=== PATIENT | female | born 1950 | race Caucasian/White ===

== ENCOUNTER 2020-05-01 09:10 | Emergency (ER) | payer OTHER ==
[~2020-05-01] VITALS: Ht 165.1 cm; Wt 79.4 kg
[2020-05-01 09:46] LABS: BASOPHILS PERCENT AUTO 1 % (0-2); EOSINOPHILS ABSOLUTE AUTO 0.32 K/mm3 (0.00-0.68); EOSINOPHILS PERCENT AUTO 2 % (0-6); Hemoglobin 14.3 g/dL (11.5-16.0); IMMATURE GRAN ABSOLUTE AUTO 0.15 K/mm3 (0.00-0.10); IMMATURE GRAN PERCENT AUTO 1 % (0-1); LYMPHOCYTES ABSOLUTE AUTO 1.63 K/mm3 (0.84-5.20); LYMPHOCYTES PERCENT AUTO 10 % (21-46); MONOCYTES ABSOLUTE AUTO 0.67 K/mm3 (0.16-1.47); MONOCYTES PERCENT AUTO 4 % (4-13); Mean Corpuscular HGB 30.5 pg (26.0-34.0); Mean Corpuscular HGB Conc 32.5 g/dL (31.5-36.5); Mean Corpuscular Volume 94 fL (80-100); Mean Platelet Volume 8.9 fL (9.1-12.4); NEUTROPHILS PERCENT AUTO 83 % (41-73); Platelet Count 303 K/mm3 (150-400); RDW Coefficient Variation 14.6 % (11.7-14.2); RDW Standard Deviation 50.4 fL (35.1-46.3); Red Blood Cell Count 4.69 M/mm3 (3.80-5.20); White Blood Cell Count 16.67 K/mm3 (4.00-11.30)
[2020-05-01 10:05] LABS: Alanine Aminotransfer (ALT/SGP 11 U/L (12-78); Albumin, Blood 2.3 g/dL (3.4-5.0); Albumin/Globulin Ratio 0.4 (0.8-1.8); Alk Phos 104 U/L (50-136); Anion Gap 7 mmol/L (6-16); Aspartate Aminotrans (AST/SGOT 49 U/L (12-37); Bilirubin, Total 0.9 mg/dL (0.1-1.0); Blood Urea Nitrogen 11 mg/dL (8-24); Bun/Creatinine Ratio 15.9 (12.0-20.0); CO2, Blood 26 mmol/L (21-32); Chloride, Blood 105 mmol/L (98-108); Creatinine, Blood 0.69 mg/dL (0.40-1.00); Globulin, Blood 6.1 g/dL (2.2-4.0); Glomerular Filtration Rate >60 (60-); Glucose, Blood 117 mg/dL (70-99); Potassium, Blood 3.9 mmol/L (3.5-5.5); Sodium, Blood 138 mmol/L (136-145); Total Protein, Blood 8.4 g/dL (6.4-8.2)
[2020-05-01] MEDS ORDERED: Norco 5-325 Ta1 EACH PO (14:43)
[2020-05-01] MEDS ORDERED: Zofran4 MG PO (14:43)
== END 2020-05-01 15:01 | disposition home or self-care (01) ==
LOC: ER 09:10
PROVIDERS: Emergency Medicine
DX: R10.9 Unspecified abdominal pain (principal); R19.00 Intra-abdominal and pelvic swelling, mass and lump, unspecified site
CPT/HCPCS: 36415; 74177; 80053; 83605; 83690; 85025; 96365-59; 96366; 96368; 96375; 96376; 99284-25; J0744; J1170; J1885; J2405; J2550; J7030; Q9967

== ENCOUNTER 2020-05-19 21:38 | Emergency (ER) | payer MEDICARE ==
[~2020-05-19] VITALS: Ht 165.1 cm; Wt 77.1 kg
[~2020-05-19 21:38] MED LIST: Norco 5-325 Ta1 EACH PO; Zofran4 MG PO
[2020-05-19 22:10] LABS: BASOPHILS ABSOLUTE AUTO 0.06 K/mm3 (0.00-0.23); BASOPHILS PERCENT AUTO 0 % (0-2); EOSINOPHILS ABSOLUTE AUTO 0.04 K/mm3 (0.00-0.68); EOSINOPHILS PERCENT AUTO 0 % (0-6); Hematocrit 32.4 % (33.0-51.0); IMMATURE GRAN ABSOLUTE AUTO 0.42 K/mm3 (0.00-0.10); IMMATURE GRAN PERCENT AUTO 3 % (0-1); LYMPHOCYTES ABSOLUTE AUTO 1.76 K/mm3 (0.84-5.20); LYMPHOCYTES PERCENT AUTO 12 % (21-46); MONOCYTES ABSOLUTE AUTO 1.23 K/mm3 (0.16-1.47); MONOCYTES PERCENT AUTO 8 % (4-13); Mean Corpuscular HGB 29.2 pg (26.0-34.0); Mean Corpuscular HGB Conc 30.9 g/dL (31.5-36.5); Mean Corpuscular Volume 95 fL (80-100); Mean Platelet Volume 8.4 fL (9.1-12.4); NEUTROPHILS ABSOLUTE AUTO 11.19 K/mm3 (1.96-9.15); NEUTROPHILS PERCENT AUTO 76 % (41-73); NRBC ABSOLUTE 0.03 K/mm3 (0.00-0.02); NRBC Auto 0.2 /100 WBC (0.0-0.2); Platelet Count 325 K/mm3 (150-400); RDW Coefficient Variation 16.6 % (11.7-14.2); RDW Standard Deviation 56.6 fL (35.1-46.3); Red Blood Cell Count 3.42 M/mm3 (3.80-5.20)
[2020-05-19 22:25] LABS: Alanine Aminotransfer (ALT/SGP 11 U/L (12-78); Albumin, Blood 2.1 g/dL (3.4-5.0); Albumin/Globulin Ratio 0.4 (0.8-1.8); Alk Phos 91 U/L (50-136); Anion Gap 10 mmol/L (6-16); Aspartate Aminotrans (AST/SGOT 36 U/L (12-37); Bilirubin, Total 0.4 mg/dL (0.1-1.0); Blood Urea Nitrogen 6 mg/dL (8-24); Bun/Creatinine Ratio 12.8 (12.0-20.0); CO2, Blood 28 mmol/L (21-32); Calcium, Blood 8.4 mg/dL (8.5-10.1); Chloride, Blood 101 mmol/L (98-108); Creatinine, Blood 0.47 mg/dL (0.40-1.00); Globulin, Blood 5.2 g/dL (2.2-4.0); Glomerular Filtration Rate >60 (60-); Glucose, Blood 86 mg/dL (70-99); Potassium, Blood 3.5 mmol/L (3.5-5.5); Sodium, Blood 139 mmol/L (136-145); Total Protein, Blood 7.3 g/dL (6.4-8.2)
== END 2020-05-20 02:47 | disposition short-term general hospital (02) ==
LOC: ER 21:38
PROVIDERS: Emergency Medicine
DX: C55 Malignant neoplasm of uterus, part unspecified (principal); R11.2 Nausea with vomiting, unspecified; Z88.0 Allergy status to penicillin; Z88.5 Allergy status to narcotic agent; Z90.710 Acquired absence of both cervix and uterus
CPT/HCPCS: 36415; 74177; 80053; 83690; 85025; 93005; 93010; 96361; 96374; 96376; 99285-25; J0694; J2405; J7030; Q9967

== ENCOUNTER 2020-05-30 17:04 | Inpatient (IN) | payer MEDICARE ==
[~2020-05-30] VITALS: Ht 165.1 cm; Wt 83.0 kg
[2020-05-30] MEDS ORDERED: Ativan1 MG PO ×2 (17:34→21:33)
[2020-05-30] MEDS ORDERED: OXYC5 PO (17:34)
[2020-05-30 17:42] LABS: Hematocrit 26.3 % (33.0-51.0); Hemoglobin 8.6 g/dL (11.5-16.0); Mean Corpuscular HGB 29.4 pg (26.0-34.0); Mean Corpuscular HGB Conc 32.7 g/dL (31.5-36.5); Mean Corpuscular Volume 90 fL (80-100); Mean Platelet Volume 10.8 fL (9.1-12.4); Platelet Count 91 K/mm3 (150-400); RDW Coefficient Variation 15.3 % (11.7-14.2); RDW Standard Deviation 50.1 fL (35.1-46.3); Red Blood Cell Count 2.93 M/mm3 (3.80-5.20)
[2020-05-30 18:05] LABS: CPK Creatine Kinase 52 U/L (26-193); Troponin I 0.038 ng/mL (0.000-0.040)
[2020-05-30 18:08] LABS: BAND PERCENT MAN 1 % (0-8); BASOPHILS PERCENT MAN 1 % (0-2); EOSINOPHILS PERCENT MAN 5 % (0-6); LYMPHOCYTES PERCENT MAN 69 % (21-46); MONOCYTES PERCENT MAN 1 % (4-13); SEG NEUTROPHILS PERCENT MAN 23 % (41-73); TOTAL CELLS COUNTED 100
[2020-05-30 18:37] LABS: Influenza A, PCR Negative (NEGATIVE); Influenza B, PCR Negative (NEGATIVE); Resp Syncytial Virus, PCR Negative (NEGATIVE); SARS-Cov-2 (COVID-19) PCR, MMC Negative (NEGATIVE)
[2020-05-30 18:55] LABS: Alanine Aminotransfer (ALT/SGP 22 U/L (12-78); Albumin, Blood 2.3 g/dL (3.4-5.0); Albumin/Globulin Ratio 0.6 (0.8-1.8); Alk Phos 81 U/L (50-136); Anion Gap 11 mmol/L (6-16); Aspartate Aminotrans (AST/SGOT 59 U/L (12-37); Bilirubin, Total 0.7 mg/dL (0.1-1.0); Blood Urea Nitrogen 7 mg/dL (8-24); Bun/Creatinine Ratio 18.9 (12.0-20.0); CO2, Blood 30 mmol/L (21-32); Calcium, Blood 7.9 mg/dL (8.5-10.1); Chloride, Blood 94 mmol/L (98-108); Creatinine, Blood 0.37 mg/dL (0.40-1.00); Globulin, Blood 4.1 g/dL (2.2-4.0); Glomerular Filtration Rate >60 (60-); Glucose, Blood 100 mg/dL (70-99); IMMATURE GRAN PERCENT AUTO 0 % (0-1); LYMPHOCYTES ABSOLUTE AUTO 0.83 K/mm3 (0.84-5.20); LYMPHOCYTES PERCENT AUTO 69 % (21-46); MONOCYTES ABSOLUTE AUTO 0.05 K/mm3 (0.16-1.47); MONOCYTES PERCENT AUTO 4 % (4-13); NEUTROPHILS ABSOLUTE AUTO 0.27 K/mm3 (1.96-9.15); NEUTROPHILS PERCENT AUTO 22 % (41-73); Potassium, Blood 2.2 mmol/L (3.5-5.5); Sodium, Blood 135 mmol/L (136-145); Total Protein, Blood 6.4 g/dL (6.4-8.2)
[2020-05-30 19:25] LABS: Magnesium, Blood 1.8 mg/dL (1.6-2.4)
[2020-05-30 21:12] LABS: Phosphorus, Blood 2.2 mg/dL (2.5-4.9)
[2020-05-30] MEDS ORDERED: ELIQUIS2.5 M1 PO (21:29)
[2020-05-30] MEDS ORDERED: HYDROCODONE-AC1 EA10 PO (21:31)
[2020-05-31 05:25] LABS: BASOPHILS ABSOLUTE AUTO 0.01 K/mm3 (0.00-0.23); BASOPHILS PERCENT AUTO 1 % (0-2); EOSINOPHILS ABSOLUTE AUTO 0.03 K/mm3 (0.00-0.68); EOSINOPHILS PERCENT AUTO 3 % (0-6); Hemoglobin 8.6 g/dL (11.5-16.0); Mean Corpuscular HGB 29.1 pg (26.0-34.0); Mean Corpuscular HGB Conc 33.1 g/dL (31.5-36.5); Mean Corpuscular Volume 88 fL (80-100); Mean Platelet Volume 10.5 fL (9.1-12.4); Platelet Count 84 K/mm3 (150-400); RDW Coefficient Variation 15.1 % (11.7-14.2); Red Blood Cell Count 2.96 M/mm3 (3.80-5.20); White Blood Cell Count 1.04 K/mm3 (4.00-11.30)
[2020-05-31 05:33] LABS: IMMATURE GRAN ABSOLUTE AUTO 0.02 K/mm3 (0.00-0.10); IMMATURE GRAN PERCENT AUTO 2 % (0-1); LYMPHOCYTES ABSOLUTE AUTO 0.78 K/mm3 (0.84-5.20); LYMPHOCYTES PERCENT AUTO 75 % (21-46); MONOCYTES ABSOLUTE AUTO 0.09 K/mm3 (0.16-1.47); MONOCYTES PERCENT AUTO 9 % (4-13); NEUTROPHILS ABSOLUTE AUTO 0.11 K/mm3 (1.96-9.15); NEUTROPHILS PERCENT AUTO 11 % (41-73)
[2020-05-31 05:42] LABS: Anion Gap 13 mmol/L (6-16); Blood Urea Nitrogen 6 mg/dL (8-24); Bun/Creatinine Ratio 17.2 (12.0-20.0); CO2, Blood 27 mmol/L (21-32); Calcium, Blood 7.6 mg/dL (8.5-10.1); Chloride, Blood 96 mmol/L (98-108); Creatinine, Blood 0.35 mg/dL (0.40-1.00); Glomerular Filtration Rate >60 (60-); Glucose, Blood 111 mg/dL (70-99); Phosphorus, Blood 2.4 mg/dL (2.5-4.9); Potassium, Blood 2.7 mmol/L (3.5-5.5); Sodium, Blood 136 mmol/L (136-145)
--- NOTE | 2020-05-31 06:19 | NUR ---
SHIFT SUMMARY PT WAS A NEW ADMIT DURING THE NIGHT, ARRIVING ON THE FLOOR AT 2245. SHE IS A&O X 2, LIVES AT HOME WITH HER WHO IS ALSO HER CAREGIVER. PT WAS ADMITTED FOR HYPOKALEMIA AND WEAKNESS. PT RECEIVED 40 MEQ KCL, 25 MMOL K PHOSPHATE, AND 2G MAG SULFATE. PT ALSO RECEIVING NS @ 75 ML/HR. VITAL SIGNS STABLE. TELE SHOWED NSR @ 87. NO C/O PAIN, NAUSEA OR SOB. PT SLEPT WELL THROUGH THE NIGHT. NO ACUTE CHANGES IN PT CONDITION NOTED. WILL CONTINUE TO MONITOR AND TREAT PER EMAR UNTIL HAND OFF TO DAY SHIFT RN.
--- NOTE | 2020-05-31 11:59 | NUR ---
Spiritual care visit conducted. Patient is sitting up in bed and wrapped in several blankets. Patient immediately tells me about her medical issues and how difficult chemotherapy has been. Patient talks about her strong support system and about her life long vicenta in [place] as her "Lord and Savior." Patient grows tired quickly as we talk so I cut my visit short. I normalize patient's experience, reinforce helpful attitudes and practices and provide prayer. Patient responds well and shows signs of an elevated mood. Patient verbalizes appreciation for the visit. I will continue to remain available to patient and family.
--- NOTE | 2020-05-31 12:15 | NUR ---
Inital Pal Care visit after case conf with RN, HH liaison and dietitian. Pt lying in bed with covers all pulled up to chin. She is very quiet and slow to speak on the rare occaission that she does. at bedside filling in with communication. They are receptive to a visit and discussion of s/s. Pt reports that she is not hurting, "right now". She states zofran was helpful for nausea and we discussed premedicating prior to nutritional supplements and any PO intake. Pt is willing to try the supplement and recommendations of slowly starting some PO intake after her consultation with our dietitian. Dietitian to discuss recommendations and ideas with Dr. Pt wants to have IV nutrition as "plan A". We reviewed some of the risks of buttermaker TPN and IV nutrition, especially in her immunocompromised and deconditioned state, progression of malnutrition with minimal intake, active chemo tx, recovering from surgeries. Pt and verbalized understanding of encouragement to work with Dr and dietiian on increasing PO intake. CM had visited earlier and determined that pt wants to return home and continue chemo tx with 's in [place]. I also left a voice mail re: possibility of home infusion for nutrition/fluids if pt unable to take in enough to sustain her. Case conferenced with HH liaison also, who had given me good hx of recent events while pt on . Pt has had multiple ER visits and hospital admissions between [facility] and [facility] in [place] since new dx of stage 4 uterine cancer one month ago. Pt appears very pale, frail, week and deconditioned today. Her seems very attentive. They verbalized appreciation of the visit and receptive to [facility] f/u for assist with symptom management in the future. I did not address code status at this time. Pt is clear that her goal is to continue chemo therapy at this time. Case Management Specialist referral made also.
[2020-05-31 15:00] LABS: Phosphorus, Blood 3.1 mg/dL (2.5-4.9); Potassium, Blood 2.6 mmol/L (3.5-5.5)
--- NOTE | 2020-05-31 19:18 | NUR ---
SHIFT SUMMARY- PT ALERT AND ORIENTED X3. SPOUSE WAS PRESENT FOR MOST OF THE DAY. PT HAS BEEN VERY GROGGY AND HAS BEEN UNABLE TO CONSUME ANYTHING FOR FEAR OF VOMITING. PT HAS BEEN BEDBOUND T/O THE SHIFT. IV POTASSIUM HAS BEEN ADMINISTERED, CALLED DR NIÑO ABOUT A RECHECK WE WILL RECHECK POTASSIUM IN THE MORNING. PT REQUESTED SOMETHING FOR HER SOB EARLIER TODAY. DR LO. O2 SATS 96% THIS MORNINGON ROOM AIR. HOB RAISED FOR PT COMFORT. PT WAS ASKED FREQUENTLY ABOUT SOB AND STATED T/O THE DAY THAT IT WAS NO WORSE THAN IT WAS AT THE START OF THE DAY. PT HAS SOME REDNESS ON THE LLE OUTER CALF/LUCIO. DR LO. PT IS CHRONICALLY COLD. ROOM TEMP IS HIGH AND SHE IS REQUESTING EXTRA BLANKETS REGULARLY. 2 IV'S HAVE BEEN INFUSING ALL DAY. ONE BECAME AVAILABLE AT SHIFT CHANGE, NEW ORDER FOR IV TORADOL TO BE PASSED ON TO NIGHT RN. PASSED ALL ON IN BEDSIDE REPORT TO NIGHT RN CHELSIE.
--- NOTE | 2020-06-01 04:25 | NUR ---
SHIFT SUMMARY PATIENT HAD NO ACUTE CHANGES OBSERVED. AXOX 3 AND BEDREST. PIVS REMAIN INTACT. PHARMACEUTICAL SERVICE REPRESENTATIVE REPORTS SR 93. VSS/AFEBRILE. DENIES PAIN AND SOB. NAUSEOUS X ONE AND RESOLVED. PHARMACEUTICAL SERVICE REPRESENTATIVE HR DROPPED TO 4O AND BACK UP WHEN PATIENT NAUSEOUS (IN CHART). REFUSED SCHEDULE PO ZOFRAN ODT EARLIER. D5 NS INFUSING AT 125mL/HR. FLAT AFFECT. CALL LIGHT IN REACH. BED IN LOWEST POSITION. WILL CONTINUE TO MONITOR UNTIL DAY SHIFT NURSE ASSUMES CARE.
[2020-06-01 05:36] LABS: Hematocrit 25.9 % (33.0-51.0); Hemoglobin 8.4 g/dL (11.5-16.0); Mean Corpuscular HGB 29.5 pg (26.0-34.0); Mean Corpuscular HGB Conc 32.4 g/dL (31.5-36.5); Mean Corpuscular Volume 91 fL (80-100); Mean Platelet Volume 10.3 fL (9.1-12.4); Platelet Count 85 K/mm3 (150-400); RDW Coefficient Variation 15.4 % (11.7-14.2); RDW Standard Deviation 50.9 fL (35.1-46.3); Red Blood Cell Count 2.85 M/mm3 (3.80-5.20)
[2020-06-01 05:43] LABS: BASOPHILS PERCENT AUTO 0 % (0-2); EOSINOPHILS ABSOLUTE AUTO 0.02 K/mm3 (0.00-0.68); EOSINOPHILS PERCENT AUTO 5 % (0-6); IMMATURE GRAN PERCENT AUTO 0 % (0-1); LYMPHOCYTES ABSOLUTE AUTO 0.31 K/mm3 (0.84-5.20); LYMPHOCYTES PERCENT AUTO 72 % (21-46); MONOCYTES ABSOLUTE AUTO 0.07 K/mm3 (0.16-1.47); MONOCYTES PERCENT AUTO 16 % (4-13); NEUTROPHILS ABSOLUTE AUTO 0.03 K/mm3 (1.96-9.15); NEUTROPHILS PERCENT AUTO 7 % (41-73)
[2020-06-01 05:44] LABS: White Blood Cell Count 0.43 K/mm3 (4.00-11.30)
[2020-06-01 05:53] LABS: Percent Saturation 16.2 % (15.0-50.0)
[2020-06-01 06:22] LABS: Alanine Aminotransfer (ALT/SGP 20 U/L (12-78); Albumin, Blood 2.5 g/dL (3.4-5.0); Albumin/Globulin Ratio 0.6 (0.8-1.8); Alk Phos 71 U/L (50-136); Anion Gap 7 mmol/L (6-16); Aspartate Aminotrans (AST/SGOT 40 U/L (12-37); Bilirubin, Total 0.6 mg/dL (0.1-1.0); Blood Urea Nitrogen 3 mg/dL (8-24); Bun/Creatinine Ratio 7.6 (12.0-20.0); CO2, Blood 31 mmol/L (21-32); Calcium, Blood 7.5 mg/dL (8.5-10.1); Chloride, Blood 100 mmol/L (98-108); Creatinine, Blood 0.39 mg/dL (0.40-1.00); Glomerular Filtration Rate >60 (60-); Glucose, Blood 138 mg/dL (70-99); Magnesium, Blood 1.9 mg/dL (1.6-2.4); Sodium, Blood 138 mmol/L (136-145); Total Protein, Blood 6.5 g/dL (6.4-8.2)
[2020-06-01 06:25] LABS: Potassium, Blood 2.4 mmol/L (3.5-5.5)
[2020-06-01 11:34] LABS: Source, Urine Catheter
[2020-06-01 12:05] LABS: Bilirubin, Urine Neg (Neg); Blood, Urine 1+ (Neg); Glucose Qualitative, Urine Neg (Neg); Ketones, Urine Neg (Neg); Leukocyte Esterase, Urine Neg (Neg); Nitrite, Urine Neg (Neg); Protein, Urine Neg (Neg); Urobilinogen, Urine NORM (Normal)
[2020-06-01 12:13] LABS: Appearance, Urine Clear (Clear); Color, Urine Yellow (P-Yellow)
[2020-06-01 12:15] LABS: Bacteria Few /hpf; Red Blood Cells, Urine 0-2 /hpf (0-2); Squamous Epithelial Cells Few /hpf (Few)
--- NOTE | 2020-06-01 18:39 | NUR ---
SHIFT SUMMARY- PT ALERT AND ORIENTED SEE EMAR FOR ALL MEDICATION CHANGES. PT HAS 3 IV PUMPS IN THE ROOM ALL THREE WERE INFUSING AT ONE POINT. CLINIMIX WITH LIPIDS RUNNING INTO THE NEW PG THAT WAS PLACED TODAY, R AC IV IS POSSITIONAL BUT FLUSHES WELL. PT HAS HAD 2 BM'S INCONTINENT TODAY, POST VOID BLADDER SCAN SHOWED 477ML REMAINING, VILLAVICENCIO PLACED FOR RETENTION. CLINIMIX IS RUNNING, SPOKE TO PHARMACIST ABOUT THE RATE OF POTASSIUM WITH THE CLINIMIX THE PT IS RECIEVING 3 MEQ OF POTASSIUM PER HOUR SO IF THERE ARE ANY ADDITIONAL K RYDERS THAT ARE ORDERED THE RATE SHOULD BE ADJUSTED FOR PT SAFETY. WILL PASS ON TO NIGHT RN IN BEDSIDE REPORT. PT SEEMS TO BE MORE ALERT TODAY AND IS MORE INTERACTIVE. LAST POTASSIUM CHECK WAS 2.8 AFTER 60MEQ OF IV POTASSIUM HAD COMPLETED.
--- NOTE | 2020-06-02 03:37 | NUR ---
SHIFT SUMMARY PATIENT HAD NO ACUTE CHANGES OBSERVED. AXOX 3 AND BEDREST. POWERGLIDE PA INTACT. CLINIMIX INFUSING AT 100mL/HR. VILLAVICENCIO PATENT AND DRAINING. DYEING MACHINE FEEDER REPORTS NSR 85. VSS/AFEBRILE. DENIES PAIN, SOB, AND N/V. ABLE TO REST T/O SHIFT. CALL LIGHT IN REACH. BED IN LOWEST POSITION. WILL CONTINUE TO MONITOR UNTIL DAY SHIFT NURSE ASSUMES CARE.
[2020-06-02 05:15] LABS: Hematocrit 19.8 % (33.0-51.0); Hemoglobin 6.4 g/dL (11.5-16.0); Mean Corpuscular HGB 29.5 pg (26.0-34.0); Mean Corpuscular HGB Conc 32.3 g/dL (31.5-36.5); Mean Corpuscular Volume 91 fL (80-100); Mean Platelet Volume 10.4 fL (9.1-12.4); NRBC ABSOLUTE 0.03 K/mm3 (0.00-0.02); NRBC Auto 1.9 /100 WBC (0.0-0.2); Platelet Count 95 K/mm3 (150-400); RDW Coefficient Variation 15.4 % (11.7-14.2); RDW Standard Deviation 51.1 fL (35.1-46.3); Red Blood Cell Count 2.17 M/mm3 (3.80-5.20); White Blood Cell Count 1.57 K/mm3 (4.00-11.30)
[2020-06-02 05:46] LABS: BAND PERCENT MAN 1 % (0-8); BASOPHILS PERCENT MAN 0 % (0-2); EOSINOPHILS ABSOLUTE MAN 0.03 K/mm3 (0.00-0.68); EOSINOPHILS PERCENT MAN 2 % (0-6); LYMPHOCYTES ABSOLUTE MAN 1.13 K/mm3 (0.84-5.20); LYMPHOCYTES PERCENT MAN 72 % (21-46); MONOCYTES ABSOLUTE MAN 0.31 K/mm3 (0.16-1.47); MONOCYTES PERCENT MAN 20 % (4-13); NEUTROPHILS ABSOLUTE MAN 0.09 K/mm3 (1.96-9.15); SEG NEUTROPHILS PERCENT MAN 5 % (41-73); TOTAL CELLS COUNTED 100
[2020-06-02 05:48] LABS: Alanine Aminotransfer (ALT/SGP 17 U/L (12-78); Albumin, Blood 2.3 g/dL (3.4-5.0); Albumin/Globulin Ratio 0.6 (0.8-1.8); Alk Phos 60 U/L (50-136); Anion Gap 6 mmol/L (6-16); Aspartate Aminotrans (AST/SGOT 24 U/L (12-37); Bilirubin, Total 0.5 mg/dL (0.1-1.0); Blood Urea Nitrogen 13 mg/dL (8-24); Bun/Creatinine Ratio 32.7 (12.0-20.0); CO2, Blood 34 mmol/L (21-32); Chloride, Blood 95 mmol/L (98-108); Globulin, Blood 3.6 g/dL (2.2-4.0); Glomerular Filtration Rate >60 (60-); Glucose, Blood 142 mg/dL (70-99); Phosphorus, Blood 2.6 mg/dL (2.5-4.9); Sodium, Blood 135 mmol/L (136-145); Total Protein, Blood 5.9 g/dL (6.4-8.2); Triglycerides 112 mg/dL (30-160)
[2020-06-02 05:50] LABS: Potassium, Blood 2.4 mmol/L (3.5-5.5)
--- NOTE | 2020-06-02 06:29 | NUR ---
cL K+ 2.[address] SCHOFIELD ORDERED KCL 20 MEQ X 3
--- NOTE | 2020-06-02 18:00 | NUR ---
PT REPORTS HAVING A BLOODY NOSE WITH DRAINAGE INTO THROAT, GAGGING ON A LONG STRINGY CLOT. SUCTION SET BROUGHT TO BEDSIDE AND PT SHOWED HOW TO SELF SUCTION. SHE WAS ABLE TO SX CLOT OUT WITHOUT DIFFICULTY. FEELING BETTER. NO MORE BLEEDING AT THIS TIME. WILL MONITOR.
--- NOTE | 2020-06-02 19:29 | NUR ---
PT HAS VERY POOR APPETITE, EATING VERY LITTLE EVEN WITH ENCOURAGEMENT. CLINIMIX W/LIPIDS RUNNING. KCL OF 2.4 THIS AM, 60MEQ IV POTASSIUM ORDERED AND INFUSED T/O THE SHIFT. 1 DOSE ALBUMIN WITH LASIX GIVEN. PT RECEIVING 1 UNIT PRBC AT THIS TIME. REPORT GIVEN TO LISA LOCKHART.
--- NOTE | 2020-06-03 05:03 | NUR ---
SHIFT SUMMARY ASSUMED CARE OF PT AT 1900. PT IS A/OX4. HEART SOUNDS REGULAR, TELE SHOWS SINUS PAC @ 90. LUNG SOUNDS HAVE CRACKLES IN THE BASES. PT RECEIVED 1UNIT OF PRBC THIS SHIFT. PT HAS SCAR ON ABD AND SMAL PRESSURE ULCER ON BOTTOM, CLEANED AND DRESSING CHANGED. PT HAS CATHETER BUT STILL HAD LEAKAGE, CATH IRAGATED AND REPOSITIONED, URINE CLEAR AND PALE YELLOW. PT RECEIVING CLINAMIX. PT FELT NAUSEATED THIS AM BUT ELL BACK ASLEEP ON REASSESSMENT. CALL LIGHT IN REACH, BED IN LOWEST POSITION.
[2020-06-03 05:27] LABS: Hematocrit 25.4 % (33.0-51.0); Hemoglobin 8.4 g/dL (11.5-16.0); Mean Corpuscular HGB 29.5 pg (26.0-34.0); Mean Corpuscular HGB Conc 33.1 g/dL (31.5-36.5); Mean Corpuscular Volume 89 fL (80-100); Mean Platelet Volume 9.6 fL (9.1-12.4); NRBC ABSOLUTE 0.21 K/mm3 (0.00-0.02); NRBC Auto 6.5 /100 WBC (0.0-0.2); Platelet Count 118 K/mm3 (150-400); RDW Standard Deviation 51.4 fL (35.1-46.3); Red Blood Cell Count 2.85 M/mm3 (3.80-5.20); White Blood Cell Count 3.24 K/mm3 (4.00-11.30)
[2020-06-03 05:53] LABS: BAND PERCENT MAN 14 % (0-8); BASOPHILS PERCENT MAN 0 % (0-2); EOSINOPHILS PERCENT MAN 0 % (0-6); LYMPHOCYTES ABSOLUTE MAN 1.32 K/mm3 (0.84-5.20); LYMPHOCYTES PERCENT MAN 41 % (21-46); METAMYELOCYTE ABSOLUTE MAN 0.03 K/mm3 (0.00-0.00); METAMYELOCYTE PERCENT MAN 1 % (0-0); MONOCYTES ABSOLUTE MAN 0.84 K/mm3 (0.16-1.47); MONOCYTES PERCENT MAN 26 % (4-13); MYELOCYTE ABSOLUTE MAN 0.09 K/mm3 (0.00-0.00); MYELOCYTE PERCENT MAN 3 % (0-0); NEUTROPHILS ABSOLUTE MAN 0.93 K/mm3 (1.96-9.15); SEG NEUTROPHILS PERCENT MAN 15 % (41-73); TOTAL CELLS COUNTED 100
[2020-06-03 06:05] LABS: Alanine Aminotransfer (ALT/SGP 18 U/L (12-78); Albumin, Blood 2.6 g/dL (3.4-5.0); Albumin/Globulin Ratio 0.7 (0.8-1.8); Alk Phos 65 U/L (50-136); Anion Gap 5 mmol/L (6-16); Aspartate Aminotrans (AST/SGOT 34 U/L (12-37); Blood Urea Nitrogen 19 mg/dL (8-24); Bun/Creatinine Ratio 43.4 (12.0-20.0); CO2, Blood 34 mmol/L (21-32); Calcium, Blood 8.4 mg/dL (8.5-10.1); Chloride, Blood 95 mmol/L (98-108); Creatinine, Blood 0.44 mg/dL (0.40-1.00); Globulin, Blood 3.6 g/dL (2.2-4.0); Glomerular Filtration Rate >60 (60-); Glucose, Blood 146 mg/dL (70-99); Potassium, Blood 2.7 mmol/L (3.5-5.5); Sodium, Blood 134 mmol/L (136-145); Total Protein, Blood 6.2 g/dL (6.4-8.2)
--- NOTE | 2020-06-03 17:54 | NUR ---
SHIFT SUMMARY- PT IS A/O, PLESANT AND COOPERATIVE. SHE IS RECIEVING IV CLINIMIX. HE K WAS LOW AND RECIEVED 2 BAGS OF POTASSIUM. HER APPETITE IS POOR. SHE SLEPT INTERMITENTLY THROUGHOUT THIS SHIFT. HER WAS AT BEDSIDE THIS AFTERNOON. SHE HAS A VILLAVICENCIO WHICH IS PATIENT AND DRAINING WELL. HER BED IS IN THE LOW POSITION AND CALL LIGHT IS WITHIN REACH.
--- NOTE | 2020-06-04 04:24 | NUR ---
SHIFT SUMMARY ASSUMED CARE OF PT AT 1900. PT IS A/OX4. HEART SOUNDS REGULAR, TELE SHOWS SINUS WITH PAC @ 86. LUNG SOUNDS HAVE FINE CRACKLES AT THE BASES. PT WAS INCONTINENT OF STOOL. PT HAD LOOSE STOOL. PT CATHETER FLOWING WITH GRAVITY. URINE CLEAR AND YELLOW. MEPILEX CHANGES ON PT BOTTOM, WOUND CLEANSED. PT C/O BACK PAIN BEFORE BED, MEDICATED PER EMAR. NO ACUTE EVENTS DURING THE NIGHT. CALL LIGHT IN REACH, BED IN LOWEST POSTION.
[2020-06-04 05:45] LABS: Hematocrit 25.2 % (33.0-51.0); Hemoglobin 8.2 g/dL (11.5-16.0); Mean Corpuscular HGB 29.5 pg (26.0-34.0); Mean Corpuscular HGB Conc 32.5 g/dL (31.5-36.5); Mean Corpuscular Volume 91 fL (80-100); Mean Platelet Volume 10.1 fL (9.1-12.4); NRBC ABSOLUTE 0.28 K/mm3 (0.00-0.02); NRBC Auto 3.8 /100 WBC (0.0-0.2); Platelet Count 134 K/mm3 (150-400); RDW Coefficient Variation 16.5 % (11.7-14.2); RDW Standard Deviation 53.1 fL (35.1-46.3); Red Blood Cell Count 2.78 M/mm3 (3.80-5.20); White Blood Cell Count 7.43 K/mm3 (4.00-11.30)
[2020-06-04 06:12] LABS: Alanine Aminotransfer (ALT/SGP 26 U/L (12-78); Albumin, Blood 2.4 g/dL (3.4-5.0); Albumin/Globulin Ratio 0.7 (0.8-1.8); Alk Phos 89 U/L (50-136); Anion Gap 5 mmol/L (6-16); Aspartate Aminotrans (AST/SGOT 59 U/L (12-37); Bilirubin, Total 0.5 mg/dL (0.1-1.0); Blood Urea Nitrogen 19 mg/dL (8-24); Bun/Creatinine Ratio 47.6 (12.0-20.0); CO2, Blood 33 mmol/L (21-32); Calcium, Blood 8.4 mg/dL (8.5-10.1); Chloride, Blood 98 mmol/L (98-108); Globulin, Blood 3.6 g/dL (2.2-4.0); Glomerular Filtration Rate >60 (60-); Glucose, Blood 139 mg/dL (70-99); Sodium, Blood 136 mmol/L (136-145)
[2020-06-04 06:15] LABS: BAND PERCENT MAN 5 % (0-8); BASOPHILS PERCENT MAN 0 % (0-2); EOSINOPHILS PERCENT MAN 0 % (0-6); LYMPHOCYTES PERCENT MAN 31 % (21-46); METAMYELOCYTE ABSOLUTE MAN 0.07 K/mm3 (0.00-0.00); METAMYELOCYTE PERCENT MAN 1 % (0-0); MONOCYTES ABSOLUTE MAN 1.26 K/mm3 (0.16-1.47); MONOCYTES PERCENT MAN 17 % (4-13); MYELOCYTE ABSOLUTE MAN 0.52 K/mm3 (0.00-0.00); MYELOCYTE PERCENT MAN 7 % (0-0); NEUTROPHILS ABSOLUTE MAN 3.19 K/mm3 (1.96-9.15); PROMYELOCYTE ABSOLUTE MAN 0.07 K/mm3 (0.00-0.00); PROMYELOCYTE PERCENT MAN 1 % (0-0); SEG NEUTROPHILS PERCENT MAN 38 % (41-73); TOTAL CELLS COUNTED 100
--- NOTE | 2020-06-04 17:54 | NUR ---
SHIFT SUMMARY- PT IS ALERT, COOPERATIVE. HER APPETITE IS POOR. SHE SLEPT INTERMITENTLY THROUGHOUT THIS SHIFT. SHE RECIEVED POTASSIUM IV. SHE IS RECIEVING CLINIMIX. HER VILLAVICENCIO IS PATIENT AND DRAINING WELL. HER WAS AT BEDSIDE THIS AFTERNOON. HER BED IS IN THE LOW POSITION AND CALL LIGHT IS WITHIN REACH.
--- NOTE | 2020-06-05 04:52 | NUR ---
SHIFT SUMMARY ASSUMED CARE OF PT AT 1900. PT IS A/OX4. HEART SOUNDS REGULAR, TELE SHOWS SINUS PAC @ 81. LUNG SOUNDS HAVE CRACKLES IN THE BASES. PT USED THE BED RIVER THIS EVENING. PT VILLAVICENCIO IS DRAINING CLEAR YELLOW URINE. PT JEREMY AREA IS RED, CREAMS APPLIED. PT HAS SORE OF L BUTTOCK, MEPILEX C/D/I. PT C/O PAIN IN HER BACK, MEDICATED PER EMAR. PT DID NOT SLEEP WELL DURING THE NIGHT. PT C/O OF HER IV BEEPING TO MUCH. CALL LIGHT IN REACH, BED IN LOWEST POSTION.
--- NOTE | 2020-06-05 14:00 | NUR ---
Pal care visit note Prior to my visit I case conferenced with Dr, PT, RN and left for CM after my visit. I also requested our volunteer visit pt this afternoon. Pt lying in bed, talking on phone with son when I arrived. She has better color and improved affect from my last visit 5 days ago. 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 I discussed with pt her short term goals/priority vs long line teamster goals/priority and medical care plans. Pt received one chemo tx in [place] and had planned to have the second treatment and subsequent txs scheduled 3 weeks apart for 5-6 total treatments. They had planned to pursue getting the tx locally instead of traveling back and forth to [place]. We talked about the importance of her getting stronger both with replenished nutrition and PT/OT being of high importance to return to any independent living at home again and also to tolerate future chemo tx if that is what she desired. She would like to have the the chemo tx that is due on and then go to rehab. I passed this on to and RODOLFO. RODOLFO was aware of this & was checking on possibility of that per . I informed pt that going home for tx may prevent admission to SNF from home. arrived with [employer] milkshakes, which pt seemed eager to try and was eating while we finished out visit. ACADEMIC SERVICES PROFESSIONAL stated she had not eaten her breakfast or lunch or even tried to eat it. I encouraged pt and to contact their oncologist because pt wanted their input to help her make a decision. I do not believe that their oncologist and surgeon in [place] are aware of pt's current status and hospitalization as the pt/ have not updated them since admission. Pt is not clear whether her tx is palliative or curative. We will remain available and if pt/ has not contacted [place] [facility], I will offer to tomorrow and request that they contact pt/ to discuss her current concerns/options r/t to dc planning. Pt reports that she is not in pain at this time.
--- NOTE | 2020-06-05 19:24 | NUR ---
SHIFT SUMMARY: NO ACUTE CHANGES TO REPORT THIS SHIFT. PT A&O; OCC FORGETFUL; CALM AND COOPERATIVE WITH CARE. MEDICATED FOR BACK PAIN & NAUSEA PER EMAR. TELE IN PLACE; SR @ 77 PER ASPHALT HEATER OPERATOR. VILLAVICENCIO IN PLACE FOR RETENTION; PATENT & DRAINING. POOR ORAL INTAKE R/T HX UTERINE CA c METS; CLINIMIX @ 100 CONTINUING. REPORT GIVEN TO ONCOMING RN.
--- NOTE | 2020-06-06 04:13 | NUR ---
SHIFT SUMMARY ALERT, ABLE TO MAKE NEEDS KNOWN. INTERMITTENT CONFUSION NOTED. COOPERATIVE WITH CARE. ANSWERS QUESTIONS APPROPRIATELY. C/O PAIN/DISCOMFORT X1; MEDICATED PER EMAR. APPEARED TO REST MUCH OF THE SHIFT. PURULENT DRAINAGE NOTED TO MIDLINE ABDOMINAL SCAR AT THE UMBILICUS; CLEANSED AND LEFT DEMETRIUS. REPOSITIONED TOLERATED. VSS/AFEBRILE. VILLAVICENCIO SECURED, PATENT AND DRAINING TO GRAVITY. NO OTHER ACUTE CHANGES NOTED OVERNIGHT. BED REMAINED IN LOWEST POSITION. CALL LIGHT AND BELONGINGS WITHIN REACH. REPORT TO ONCOMING RN.
[2020-06-06 05:51] LABS: Hematocrit 28.9 % (33.0-51.0); Hemoglobin 9.2 g/dL (11.5-16.0); Mean Corpuscular HGB 29.9 pg (26.0-34.0); Mean Corpuscular HGB Conc 31.8 g/dL (31.5-36.5); Mean Corpuscular Volume 94 fL (80-100); Mean Platelet Volume 9.5 fL (9.1-12.4); NRBC ABSOLUTE 0.11 K/mm3 (0.00-0.02); NRBC Auto 0.9 /100 WBC (0.0-0.2); Platelet Count 131 K/mm3 (150-400); RDW Coefficient Variation 17.9 % (11.7-14.2); RDW Standard Deviation 55.8 fL (35.1-46.3); Red Blood Cell Count 3.08 M/mm3 (3.80-5.20); White Blood Cell Count 11.89 K/mm3 (4.00-11.30)
[2020-06-06 06:04] LABS: Anion Gap 6 mmol/L (6-16); Blood Urea Nitrogen 21 mg/dL (8-24); Bun/Creatinine Ratio 50.4 (12.0-20.0); CO2, Blood 30 mmol/L (21-32); Calcium, Blood 8.5 mg/dL (8.5-10.1); Chloride, Blood 100 mmol/L (98-108); Creatinine, Blood 0.42 mg/dL (0.40-1.00); Glomerular Filtration Rate >60 (60-); Glucose, Blood 141 mg/dL (70-99); Phosphorus, Blood 4.5 mg/dL (2.5-4.9); Potassium, Blood 3.7 mmol/L (3.5-5.5); Sodium, Blood 136 mmol/L (136-145)
[2020-06-06 06:15] LABS: BAND PERCENT MAN 7 % (0-8); BASOPHILS ABSOLUTE MAN 0.11 K/mm3 (0.00-0.23); BASOPHILS PERCENT MAN 1 % (0-2); EOSINOPHILS ABSOLUTE MAN 0.11 K/mm3 (0.00-0.68); EOSINOPHILS PERCENT MAN 1 % (0-6); LYMPHOCYTES ABSOLUTE MAN 1.66 K/mm3 (0.84-5.20); LYMPHOCYTES PERCENT MAN 14 % (21-46); METAMYELOCYTE ABSOLUTE MAN 0.59 K/mm3 (0.00-0.00); METAMYELOCYTE PERCENT MAN 5 % (0-0); MONOCYTES ABSOLUTE MAN 1.07 K/mm3 (0.16-1.47); MONOCYTES PERCENT MAN 9 % (4-13); MYELOCYTE ABSOLUTE MAN 0.95 K/mm3 (0.00-0.00); MYELOCYTE PERCENT MAN 8 % (0-0); NEUTROPHILS ABSOLUTE MAN 7.25 K/mm3 (1.96-9.15); PROMYELOCYTE ABSOLUTE MAN 0.11 K/mm3 (0.00-0.00); PROMYELOCYTE PERCENT MAN 1 % (0-0); SEG NEUTROPHILS PERCENT MAN 54 % (41-73); TOTAL CELLS COUNTED 100
--- NOTE | 2020-06-06 16:12 | NUR ---
Pal Care visit after case conference with Dr Unger and Lorie REYNOLDS. Reviewed EMR and Dr Hilario's note of today also. In my visit with pt and her , they are clear that pt "wants to fight this". We talked about the need to work harder at adequate nutrition and mobility to help prevent complications of illness and treatment if she opts to go home and forego SNF care in order to have chemo tx. Pt maintains that her trouble eating has been long standing and not a result of her cancer, surgery or her first chemo treatment, ever since her gastric bypass surgery 30 years ago. She is concerned that if the oncologist believes her cancer is progressing despite treatment that he will not offer her further treatment. We discussed that providers have to base treatment decisions on the facts they have available to them. Pt's response was, "I am really not a facts kind of person". I spent time asking pt and her what kind of help they had at home. Pt's sister and husbands brother are currently available to help at home. Pt talked about juicing fresh fruits and vegetables like she has in the past to boost her nutrition intake. They understand that if treatment is to proceed, they are not able to do that from a SNF/Rehab facility. Therapeutic listening and encouragement provided. Report on my visit given to Dr Unger and Lorie REYNOLDS after my visit. Report provided to Yard Hostler also for future f/u.
--- NOTE | 2020-06-06 18:43 | NUR ---
SHIFT SUMMARY: NO ACUTE CHANGES TO REPORT THIS SHIFT. PT A&O; CALM AND COOPERATIVE WITH CARE. MEDICATED FOR PAIN X1 THIS SHIFT. VILLAVICENCIO IN PLACE FOR RETENTION; PATENT & DRAINING. POOR ORAL INTAKE; CLINIMIX CONTINUING @ 100 ML/HR. ONCOLOGY CONSULT (DR HOGAN) THIS SHIFT. WCTM.
--- NOTE | 2020-06-06 19:05 | NUR ---
ASSUMED CARE RECEIVED REPORT FROM CHANTELLE COLÓN. ASSUMED CARE OF PT. RESTING COMFORTABLY, NO S/S ACUTE DISTRESS OR NEEDS NOTED AT THIS TIME. CALL LIGHT, POSSESSIONS IN REACH, BED IN LOW POSITION. WCLANI.
--- NOTE | 2020-06-07 06:28 | NUR ---
SHIFT SUMMARY PT ASLEEP, NO ACUTE NEEDS OR DISTRESS NOTED. WAS MONITORED EVERY 1-2 HOURS WITH NEEDS MET. PAIN MANAGED WITH MEDS PER EMAR, WITH EFFECTIVE RELIEF; PT ABLE TO SLEEP T/O NIGHT. VS REVIEWED, WNL. REPOSITIONED TOLERATED. PT DENIES PAIN OR NEEDS AT THIS TIME. CALL LIGHT, POSSESSIONS IN REACH, BED IN LOW POSITION. CONTINUE TO MONITOR UNTIL REPORT GIVEN TO DAY RN.
--- NOTE | 2020-06-07 18:15 | NUR ---
SUMMARY PT RESTING IN BED, POOR APPETITE TODAY, PRE-MED BEFORE EACH MEAL WITH NAUSEA MEDS, PT MED PER EMAR FOR PAIN AND ANXIETY, FAMILY IN TO VISIT, RASHMI COLBY, ATTENDS IN PLACE, VSS, NO COMPLAINTS, WILL CONT TO MONITOR
--- NOTE | 2020-06-08 04:54 | NUR ---
SHIFT SUMMARY PT A/O. FLAT AFFECT. REPORTS THAT SHE FEELS GENERALLY UNWELL RECENTLY. PT HAVING INTERMITTENT NAUSEA AND ANXIETY THROUGHOUT THE NIGHT. MEDICATED PER EMAR. PT HAS NOT REQUIRED ANY PRN PAIN MEDICATION THIS EVENING. DRESSING TO ABD REMAINED C/D/I. PT WEAK AND FATIGUED. REMAINED IN BED THROUGHOUT THE NIGHT. TELEMETRY SR W/ PAC'S 99. PT RESTING IN BED AT THIS TIME. VITAL SIGNS STABLE. WILL CONTINUE TO MONITOR AND REPORT TO DAY RN.
--- NOTE | 2020-06-08 17:59 | NUR ---
PATIENT A/OX4 TODAY. NAUSEA WELL CONTROLLED TODAY WITH ZOFRAN, BUT CONTINUES TO HAVE A POOR APPETITE. INCONTINENT OF URINE/STOOL. WORKED WITH PT TODAY AND WAS ABLE TO TRANSFER TO A CHAIR WITH MINIMAL ASSIST. GENERALIZED EDEMA. LUNGS CLEAR/DIM ON RA. CLINIMIX AND LIPIDS D/C'D TODAY. POWERGLIDE TO PA WNL AND SL. SR/ST ON TELE WITH PAC'S. DENIES ANY PAIN THIS SHIFT. DRESSING TO MIDLINE INCISION CHANGED TODAY AND REMAINS C/D/I. PICTURES TAKEN OF PRESSURE SORE TO BUTTOCKS AND MEPILEX REPLACED. PATIENT HAS FLAT AFFECT, BUT ABLE TO MAKE NEEDS KNOWN.
--- NOTE | 2020-06-09 04:41 | NUR ---
SHIFT SUMMARY PT SLEPT MOST OF THE EVENING. REPORTED GENERALIZED PAIN THROUGHOUT. MEDICATED WITH PO DILAUDID WITH GOOD EFFECT. PT HAS VERY FLAT AFFECT. APPEARS DEPRESSED. NAUSEA WITH ANY ORAL INTAKE. PT ATE VERY LITTLE DINNER. ABD INCISION SITE WITH A SMALL AMOUNT OF DRAINING FROM TOP, OTHERWISE CLEAN AND DRY AND APPEARS FREE FROM INFECTION. TELEMETRY READING SR W/ PVC'S AT 100. VITAL SIGNS STABLE. NO ACUTE CHANGES THIS SHIFT. WILL CONTINUE TO MONITOR AND REPORT TO DAY RN.
[2020-06-09 05:48] LABS: Triglycerides 178 mg/dL (30-160)
[2020-06-09] MEDS ORDERED: ACET325 PO (11:53)
[2020-06-09] MEDS ORDERED: HYDMOR4 PO (11:54)
[2020-06-09] MEDS ORDERED: MEGE40T PO (11:55)
[2020-06-09] MEDS ORDERED: MIRT30ST PO (11:55)
[2020-06-09] MEDS ORDERED: OMEP20ER PO (11:56)
[2020-06-09] MEDS ORDERED: ONDA4ODT MM (11:58)
--- NOTE | 2020-06-09 15:35 | NUR ---
PT WAS DISCHARGED HOME ALERT AND ORIENTED WITH BELONGINGS AND FAMILY AT SIDE VIA WHEELCHAIR. PT WAS EDUCATED ON SS TO CALL IN FOR AND FU APPOINTMENTS THAT NEED TO BE MADE. PT MADE NO COMPLAINTS AT THE TIME OF DC AND PG LINE WAS DC'S AND WNL.
== END 2020-06-09 13:44 | disposition home health service (06) | DRG 871 ==
LOC: ER 17:04 → MEDS 17:05
PROVIDERS: Emergency Medicine; Internal Medicine; Nurse Practitioner Acute Care; ADMIT Family Medicine
PROC: 30233N1 Transfusion of Nonautologous Red Blood Cells into Peripheral Vein, Percutaneous Approach (ICD-10-PCS; principal; 2020-05-31)
DX: A41.9 Sepsis, unspecified organism (principal); D61.810 Antineoplastic chemotherapy induced pancytopenia; C79.11 Secondary malignant neoplasm of bladder; E44.0 Moderate protein-calorie malnutrition; L89.312 Pressure ulcer of right buttock, stage 2; Z51.5 Encounter for palliative care; Z20.822 Contact with and (suspected) exposure to COVID-19; C55 Malignant neoplasm of uterus, part unspecified; E83.39 Other disorders of phosphorus metabolism; T45.1X5A Adverse effect of antineoplastic and immunosuppressive drugs, initial encounter; Z98.84 Bariatric surgery status; R33.8 Other retention of urine; E87.6 Hypokalemia; Z68.26 Body mass index [BMI] 26.0-26.9, adult; C54.1 Malignant neoplasm of endometrium
CPT/HCPCS: 0241U; 36415; 36430; 71045; 71260; 74177; 80048; 80053; 81001; 82550; 82607; 82728; 82746; 83540; 83550; 83605; 83690; 83735; 83880; 84100; 84132; 84145; 84443; 84478; 84484; 85025; 85379; 86850; 86900; 86901; 86923; 87040; 93005; 93010; 96365-59; 96366; 96367; 96368; 96372; 96375; 96376; 97110; 97162; 97530; 99285-25; A9270; C1751; C9113; G0378; J0692; J0780; J1170; J1447; J1650; J1885; J1940; J2405; J3370; J3420; J3475; J3480; J7030; J7042; J7050; J7060; P9016; P9046; Q9967

== ENCOUNTER 2020-07-04 10:27 | Emergency (ER) | payer MEDICARE ==
[~2020-07-04] VITALS: Ht 165.1 cm; Wt 69.0 kg
[~2020-07-04 10:27] MED LIST changes: +ACET325 PO; +Ativan1 MG PO; +ELIQUIS2.5 M1 PO; +HYDMOR4 PO; +HYDROCODONE-AC1 EA10 PO; +MEGE40T PO; +MIRT30ST PO; +OMEP20ER PO; +ONDA4ODT MM; +OXYC5 PO
[2020-07-04 12:03] LABS: Source, Urine Clean Catch
[2020-07-04 12:09] LABS: BASOPHILS ABSOLUTE AUTO 0.11 K/mm3 (0.00-0.23); BASOPHILS PERCENT AUTO 1 % (0-2); EOSINOPHILS PERCENT AUTO 0 % (0-6); Hematocrit 42.5 % (33.0-51.0); Hemoglobin 12.9 g/dL (11.5-16.0); IMMATURE GRAN ABSOLUTE AUTO 0.31 K/mm3 (0.00-0.10); IMMATURE GRAN PERCENT AUTO 2 % (0-1); LYMPHOCYTES ABSOLUTE AUTO 2.12 K/mm3 (0.84-5.20); LYMPHOCYTES PERCENT AUTO 14 % (21-46); MONOCYTES ABSOLUTE AUTO 0.92 K/mm3 (0.16-1.47); MONOCYTES PERCENT AUTO 6 % (4-13); Mean Corpuscular HGB 28.5 pg (26.0-34.0); Mean Corpuscular HGB Conc 30.4 g/dL (31.5-36.5); Mean Corpuscular Volume 94 fL (80-100); Mean Platelet Volume 10.3 fL (9.1-12.4); NEUTROPHILS ABSOLUTE AUTO 11.51 K/mm3 (1.96-9.15); NEUTROPHILS PERCENT AUTO 77 % (41-73); Platelet Count 249 K/mm3 (150-400); RDW Coefficient Variation 17.9 % (11.7-14.2); RDW Standard Deviation 61.3 fL (35.1-46.3); Red Blood Cell Count 4.53 M/mm3 (3.80-5.20); White Blood Cell Count 14.97 K/mm3 (4.00-11.30)
[2020-07-04 12:11] LABS: Blood, Urine 3+ (Neg); Glucose Qualitative, Urine Neg (Neg); Ketones, Urine 2+ (Neg); Leukocyte Esterase, Urine 1+ (Neg); Nitrite, Urine Neg (Neg); Protein, Urine 3+ (Neg); Urobilinogen, Urine 2+ (Normal)
[2020-07-04 12:21] LABS: Appearance, Urine Hazy (Clear); Bilirubin, Urine 1+ (Neg); Color, Urine Yellow (P-Yellow)
[2020-07-04 12:22] LABS: Bacteria Many /hpf; Squamous Epithelial Cells Few /hpf (Few)
[2020-07-04 13:37] LABS: Alanine Aminotransfer (ALT/SGP 18 U/L (12-78); Albumin, Blood 2.4 g/dL (3.4-5.0); Albumin/Globulin Ratio 0.5 (0.8-1.8); Alk Phos 170 U/L (50-136); Anion Gap 9 mmol/L (6-16); Aspartate Aminotrans (AST/SGOT 34 U/L (12-37); Bilirubin, Total 0.6 mg/dL (0.1-1.0); Blood Urea Nitrogen 26 mg/dL (8-24); Bun/Creatinine Ratio 42.2 (12.0-20.0); CO2, Blood 27 mmol/L (21-32); Calcium, Blood 8.7 mg/dL (8.5-10.1); Chloride, Blood 109 mmol/L (98-108); Creatinine, Blood 0.62 mg/dL (0.40-1.00); Globulin, Blood 5.3 g/dL (2.2-4.0); Glomerular Filtration Rate >60 (60-); Glucose, Blood 125 mg/dL (70-99); Potassium, Blood 3.7 mmol/L (3.5-5.5); Sodium, Blood 145 mmol/L (136-145); Total Protein, Blood 7.7 g/dL (6.4-8.2)
[2020-07-04] MEDS ORDERED: PROM25 PO ×2 (13:49→13:50)
[2020-07-04] MEDS ORDERED: CIPR500 PO ×2 (13:49→13:50)
== END 2020-07-04 14:25 | disposition home or self-care (01) ==
LOC: ER 10:27
PROVIDERS: Emergency Medicine
DX: N39.0 Urinary tract infection, site not specified (principal); R11.2 Nausea with vomiting, unspecified; E86.0 Dehydration; D72.829 Elevated white blood cell count, unspecified; C55 Malignant neoplasm of uterus, part unspecified; Z88.0 Allergy status to penicillin; Z88.5 Allergy status to narcotic agent; Z91.018 Allergy to other foods; Z79.899 Other long term (current) drug therapy
CPT/HCPCS: 36415; 80053; 81001; 85025; 87040; 87077; 87086; 87186; 96361; 96365; 96375; 99284-25; J0780; J1956; J7030

== ENCOUNTER 2020-07-17 14:35 | Observation (INO) | payer MEDICARE ==
[~2020-07-17] VITALS: Ht 165.1 cm; Wt 70.0 kg
[~2020-07-17 14:35] MED LIST changes: +CIPR500 PO; +PROM25 PO
[2020-07-17 15:14] LABS: BASOPHILS PERCENT AUTO 1 % (0-2); EOSINOPHILS ABSOLUTE AUTO 0.02 K/mm3 (0.00-0.68); EOSINOPHILS PERCENT AUTO 0 % (0-6); Hematocrit 35.3 % (33.0-51.0); Hemoglobin 10.8 g/dL (11.5-16.0); IMMATURE GRAN ABSOLUTE AUTO 0.78 K/mm3 (0.00-0.10); IMMATURE GRAN PERCENT AUTO 5 % (0-1); LYMPHOCYTES ABSOLUTE AUTO 2.15 K/mm3 (0.84-5.20); LYMPHOCYTES PERCENT AUTO 13 % (21-46); MONOCYTES ABSOLUTE AUTO 1.49 K/mm3 (0.16-1.47); MONOCYTES PERCENT AUTO 9 % (4-13); Mean Corpuscular HGB 29.1 pg (26.0-34.0); Mean Corpuscular HGB Conc 30.6 g/dL (31.5-36.5); Mean Corpuscular Volume 95 fL (80-100); Mean Platelet Volume 9.6 fL (9.1-12.4); NEUTROPHILS ABSOLUTE AUTO 12.68 K/mm3 (1.96-9.15); NEUTROPHILS PERCENT AUTO 74 % (41-73); NRBC ABSOLUTE 0.02 K/mm3 (0.00-0.02); NRBC Auto 0.1 /100 WBC (0.0-0.2); Platelet Count 294 K/mm3 (150-400); RDW Coefficient Variation 17.6 % (11.7-14.2); RDW Standard Deviation 62.4 fL (35.1-46.3); Red Blood Cell Count 3.71 M/mm3 (3.80-5.20); White Blood Cell Count 17.22 K/mm3 (4.00-11.30)
[2020-07-17 15:31] LABS: Alanine Aminotransfer (ALT/SGP 10 U/L (12-78); Albumin, Blood 2.3 g/dL (3.4-5.0); Albumin/Globulin Ratio 0.4 (0.8-1.8); Alk Phos 81 U/L (50-136); Anion Gap 11 mmol/L (6-16); Aspartate Aminotrans (AST/SGOT 30 U/L (12-37); Bilirubin, Total 0.4 mg/dL (0.1-1.0); Blood Urea Nitrogen 14 mg/dL (8-24); Bun/Creatinine Ratio 27.8 (12.0-20.0); CO2, Blood 26 mmol/L (21-32); Calcium, Blood 8.5 mg/dL (8.5-10.1); Chloride, Blood 105 mmol/L (98-108); Globulin, Blood 5.4 g/dL (2.2-4.0); Glomerular Filtration Rate >60 (60-); Glucose, Blood 91 mg/dL (70-99); Potassium, Blood 3.4 mmol/L (3.5-5.5); Sodium, Blood 142 mmol/L (136-145); Total Protein, Blood 7.7 g/dL (6.4-8.2)
[2020-07-17] MEDS ORDERED: LORAZEPAM0.5 MG PO (17:35)
[2020-07-17] MEDS ORDERED: POTCHL20ER PO (17:36)
[2020-07-17] MEDS ORDERED: HYDMOR4 PO (17:37)
--- NOTE | 2020-07-17 20:17 | NUR ---
Met with the patient and . Luisito grievieng and anxious. pt assessment pt denies headaches blurred vision, sore mouth or difficulty swallowing. Some mild dyspnea, pt having fullness and pain in pelvic area in increasing nausea and vomiting. denies any back or exptremity pains. Pt plans to go home on hospice as soon as we can get pain controlled and set up hospice plan. pt on [facility] reviewed with hospice can do and offer. hesitant to say he was not hsppy with the nurse that was seeing them so not wanting [facility]. Review of other companies and decided on [facility]. let them know the can think about or change their minds of they come out and they are not comfortable. review of symptoms and pt needs with nursing.
--- NOTE | 2020-07-17 21:54 | NUR ---
2132 PT ADMITTED TO ROOM 364 PER CART FROM ER; PT SLIDE INTO X 4 ASSIST VIA SLIDER SHEET; PT VERY SLEEPY; SPOUSE CLARISSA AT SIDE AND INTENDS TO SPEND NIGHT; PT IS ON COMFORT CARE MEASURES; PT HAS ABD WOUND NOTED WITH PICTURE TAKEN AND CONSENT RECEIVED FROM SPOUSE.
--- NOTE | 2020-07-18 06:44 | NUR ---
SHIFT SUMMARY: 70 Y/O FEMALE RESTED COMFORTABLY ALL SHIFT WITH SPOUSE CLARISSA AT SIDE WHOM VERY SUPPORTIVE; PT ALERT AND ORIENTED X 4, C/O OCCASIONAL ABD PAIN RATED 7/10 WITH ROXANOL 20MG SL GIVEN WITH RELIEF FELT; PHENERGAN 25MG IVP GIVEN X 1 FOR NAUSEA WITH RELIEF FELT; PT ON COMFORT CARE; BED ALARM APPLIED FOR SAFETY, BED LOW POSITION WITH CALL LIGHT AT SIDE.
--- NOTE | 2020-07-18 17:11 | NUR ---
Multiple visits to check on pt symptoms. pt comfortable sometimes feels full or bloated less nausea and pain. at bedside and comfortable
--- NOTE | 2020-07-18 17:58 | NUR ---
Spiritual care note: Met with pt and spouse at bedside. Provided prayer for pt and encouragement to spouse. Encouraged self-care to spouse and assurance of care. I will remain availbale.
--- NOTE | 2020-07-18 18:48 | NUR ---
SHIFT SUMMARY PT IS A COMFORT CARE PT. PT IS 2P MAX ASSIST. MEDICATED FOR PAIN X2. PT AND VERY EMOTIONAL ABOUT THE DISCONTINUATION OF FLUIDS. MEDIPORT DEACCESSED TODAY. PT EDUCATED BY DR CANTU AT BEDSIDE ABOUT COMFORT CARE.PT WILL BE DC ON HOSPICE ON FRIDAY . BED IS IN THE LOWEST POSITION AND CALL LIGHT WITHIN REACH.
--- NOTE | 2020-07-18 19:35 | NUR ---
COMFORT: PATIENT IS RESTING WITH EYE'S CLOSED. NO S/S OF PAIN, HAD GOOD EFFECT FROM MORPHINE. IS AT BEDSIDE. MOUTHCARE IS GIVEN WITH T&P.
--- NOTE | 2020-07-18 23:18 | NUR ---
COMFORT: PATIENT IS RESTING IN BED WITH EYE'S CLOSED. REPORTED FEELING NAUSEATED WITH T&P. NO IV ACCESS AND NO ORAL MEDICATION FOR NAUSEA ORDERED. MARIANGEL PEREIRA FOLDER AND NOTCHER IS NOTIFIED AND ORDER FOR ZOFRAN SL WAS OBTAINED. MED NOT GIVEN AT THIS TIME DUE TO NAUSEA HAS PASSED. REMERON WAS NOT GIVEN DUE TO NAUSEA. REMAINS AT BEDSIDE PROVIDING EMOTIONAL SUPPORT.
--- NOTE | 2020-07-19 00:25 | NUR ---
COMFORT: PATIENT IS MOANING AND RESTLESS, CAN'T GET COMFORTABLE. PATIENT IS ASSISTED WITH REPOSITIONING AND ROXANOL IS GIVEN. AND WARM BLANKET IS ALSO APPLIED FOR COMFORT.
--- NOTE | 2020-07-19 01:01 | NUR ---
ANXIETY/INSOMNIA: PATIENT IS RESTLESS AND IS UNABLE TO SLEEP. ATIVAN IS ORDERED IV. DR LAROSE IS NOTIFIED AND ORDERS FOR ATIVAN 0.5MG-1MG IS OBTAINED AND 0.5MG IS GIVEN.
--- NOTE | 2020-07-19 03:29 | NUR ---
COMFORT: PATIENT HAD FAIR EFFECT FROM ATIVAN AND SLEPT FOR 2.5 HOURS. SCORING A 3 ON FLACC SCALE. ROXANOL IS GIVEN.
--- NOTE | 2020-07-19 04:12 | NUR ---
INTEGUMENTARY: PATIENT IS SCRATCHING HER SKIN ALL OVER, MAKING RED GUAMAN. DR LAROSE IS NOTIFIED AND ORDER FOR BENADRYL IS OBTAINED.
--- NOTE | 2020-07-19 06:01 | NUR ---
COMFORT: PATIENT IS AWAKE AND STILL REPORTS ITCHING. BENADRYL, T&P, PERSONAL CARE AND SIPS OF FLUIDS ARE GIVEN. REMAINS AT BEDSIDE PROVIDING EMTIONAL SUPPORT.
--- NOTE | 2020-07-19 18:13 | NUR ---
SHIFT SUMMARY PT IS ON COMFORT CARE; WILL GO HOME [facility] TOMORROW WITH . PT HAD BED BATH TODAY. AND MEDICATED FOR PAINX2. PT ALSO MEDICATED FOR ANXIETY THIS AFTERNOON. PT BUTTOM RED AND CREAM APPLIED, REPOSITION NEEDED AND PT ALLOWS. BED IS IN THE LOWEST POSITION AND CALL LIGHT WITHIN REACH
--- NOTE | 2020-07-19 20:17 | NUR ---
Comfort: Patient is opening eye's to voice. no s/s of pain. is at bedside, emotional support, personal care and T&P are given.
--- NOTE | 2020-07-19 22:42 | NUR ---
COMFORT: PATIENT IS RESTING IN BED WITH AT BED SIDE. NO S/S OF DISCOMFORT. NO URINE OUTPUT FOR 24 HOURS. BLADDER SCAN SHOWS OVER 300ML. MARIANGEL PEREIRA COMMUNITY LIVING SPECIALIST IS NOTIFIED AND ORDERS TO PLACE VILLAVICENCIO IS OBTAINED. IS IN AGREEMENT.
--- NOTE | 2020-07-20 00:36 | NUR ---
/COMFORT: PATIENT IS RESTING QUIETLY WITH SLEEPING AT BEDSIDE. VILLAVICENCIO IS DRAINING AN ROSSY URINE. T&P AND PERSONAL CARE GIVEN.
[2020-07-20 01:08] LABS: Source, Urine Catheter
[2020-07-20 01:14] LABS: Appearance, Urine Clear (Clear); Blood, Urine 1+ (Neg); Color, Urine Amber (P-Yellow); Glucose Qualitative, Urine Neg (Neg); Ketones, Urine 1+ (Neg); Leukocyte Esterase, Urine 1+ (Neg); Nitrite, Urine Neg (Neg); Protein, Urine 3+ (Neg); Specific Gravity, Urine 1.025 (1.003-1.022); Urobilinogen, Urine 1+ (Normal)
[2020-07-20 01:25] LABS: Bilirubin, Urine 1+ (Neg)
[2020-07-20 01:27] LABS: Bacteria Mod /hpf; Mucus Light (0-Heavy); Red Blood Cells, Urine Rare /hpf (0-2); Squamous Epithelial Cells Not Seen /hpf (Few)
--- NOTE | 2020-07-20 02:05 | NUR ---
COMFORT: PATIENT IS RESTLESS AND ANXIOUS, 0.5 MG OF ATIVAN IS GIVEN.
--- NOTE | 2020-07-20 06:39 | NUR ---
COMFORT: PATIENT HAD GOOD EFFECT FROM ATIVAN GIVEN AT 0200. RESTING QUIETLY WITH EYE'S CLOSE RESPIRATIONS ARE EASY AT 14. IS ALSO SLEEPING. T&P AND PERSONAL CARE IS GIVEN.
--- NOTE | 2020-07-20 06:41 | NUR ---
SHIFT SUMMARY: PATIENT IS MINIMALLY RESPONSIVE. OPENS EYE'S OCCASSIONALLY TO VOICE, VOICE IS A WISPER. VILLAVICENCIO WAS PLACED FOR RETENTION AND IS DRAINING AN ROSSY URINE, UA WAS SENT PER PROTOCOL. DRSG COVERING UNHEALED SURGIACL WOUND ON ABD. HAD A GAUGE DRESSING THAT IS CD&I. REMAINS AT BEDSIDE, EMATIONAL SUPORT IS GIVEN.
[2020-07-20] MEDS ORDERED: MORP20L SL (08:22)
[2020-07-20] MEDS ORDERED: TRANSDERM-SCOP1 EAC4 TOP (08:24)
--- NOTE | 2020-07-20 10:56 | NUR ---
Pal Care comfort care visit and case conference with RN and CM. at bedside, gathering up belongings for anticipated transport home and start of hospice care with [facility] hospice, arraged by CM. Pt was naked and uncovered. was looking for a night gown of hers but did not find it. I placed a clean hospital gown on pt and washed her face. Time spent in support and listening to tell of the events of past week. Pt and known to me from her prior admission here last month. appropriately tearful at times. I confirmed that he has help at home with his sister living very nearby his home in [place]. RN arrived with the news that transport was delayed from 10 am to 1pm. We encouraged to go home so he could rest and complete any home set up prior to pt's arrival there. Verified with CM that he did not need to stop at pharmacy and that [facility] hospice would hot die picker comfort pack/rxs and deliver with visit. agreed to head home and wait for pt there. We assured him we would check on her frequently and make sure she was comfortable prior to transport. expressed gratitude for all the staff and care Lidia has received.
--- NOTE | 2020-07-20 12:40 | NUR ---
AT BEDSIDE. SHE MOSTLY UNRESPONSIVE. SHE APPEARS COMFORTABLE TO HER AND TO ME. RESPIRATIONS REGULAR.
--- NOTE | 2020-07-20 12:41 | NUR ---
1000 NOTE I TAUGHT HER HOW TO EMPTY HER VILLAVICENCIO CATHETER AND TO CLEAN AROUND THE CATHETER TWICE A DAY. I GAVE HIM A NEW URINAL FOR HOME USE. URINE OUTPUT IS DARK TEA COLOR. HE ACCEPTED THE TEACHING WELL.
--- NOTE | 2020-07-20 12:43 | NUR ---
1200 NOTE HER WENT HOME EARLIER TO GET THE HOUSE READY. SHE HAS REMAINED COMFORTABLE. JACKIE WILL MEET HER AT HOME FOR HOSPICE ADMISSION. LORENE IS WAITING FOR JACKIE. MICHEL PAPERS ARE IN AN ENVELOPE TO GO WITH HER.
--- NOTE | 2020-07-20 13:17 | NUR ---
DISCHARGED TO HOME BY AMBULANCE WITH DC INSTRUCTIONS. SHE TOLERATED THE TRANFER ONTO THE GURNEY FROM THE BED WELL. NO BM. NO MEASURABLE U.O. SINCE VILLAVICENCIO EMPTIED AT 1030.
== END 2020-07-20 13:11 | disposition home or self-care (01) ==
LOC: ER 14:35 → MEDS 14:37 → ERHOLD 14:37 → MEDS 14:38 → ERHOLD 17:26 → ER 17:26 → ERHOLD 21:35 → MEDS 21:35
PROVIDERS: Emergency Medicine; Nurse Practitioner Acute Care; ADMIT Internal Medicine
DX: C55 Malignant neoplasm of uterus, part unspecified (principal); G89.3 Neoplasm related pain (acute) (chronic); C79.9 Secondary malignant neoplasm of unspecified site; K56.609 Unspecified intestinal obstruction, unspecified as to partial versus complete obstruction; E44.0 Moderate protein-calorie malnutrition; E86.0 Dehydration; E87.6 Hypokalemia; Z66 Do not resuscitate; T81.31XA Disruption of external operation (surgical) wound, not elsewhere classified, initial encounter; D64.9 Anemia, unspecified; D72.829 Elevated white blood cell count, unspecified; N39.0 Urinary tract infection, site not specified; B96.20 Unspecified Escherichia coli [E. coli] as the cause of diseases classified elsewhere; Z51.5 Encounter for palliative care; Z90.710 Acquired absence of both cervix and uterus; Z92.21 Personal history of antineoplastic chemotherapy; Z98.84 Bariatric surgery status
CPT/HCPCS: 51702; 74177; 80053; 81001; 85025; 87086; 87106; 93005; 93010; 96361; 96374; 96375; 99285-25; A9270; G0378; J1642; J2060; J2405; J2550; J3010; J7030; Q9967